=== PATIENT | male | born 1985 | race Caucasian/White ===

== ENCOUNTER → 2025-08-25 | Emergency (ER) | payer OTHER ==
[~2025-08-25] VITALS: Ht 172.7 cm; Wt 80.7 kg
[~2025-08-25] MED LIST: ACETAMINOPHEN 500 MG GEL..CAP PO ONE; AMOX-CLAV 875-1 EAC1 PO; CEFTRIAXONE SODIUM 1,000 MG VIAL IM ONE; CEFTRIAXONE SODIUM 1,000 MG VIAL ONE; DEXAMETHASONE SODIUM PHOSPHATE 4 MG/ML VIAL IM ONE; DEXAMETHASONE SODIUM PHOSPHATE 4 MG/ML VIAL ONE; IBU600 MG PO; KETOROLAC TROMETHAMINE 60 MG VIAL IM ONE; OFLOXACIN 0.3% 5ML DROPS (OTIC) OT ONE
[2025-08-25 14:00] LABS: BASO % 0.6 % (0.1-1.2); EOS # 0.02 (0.04-0.54); EOS % 0.2 % (0.7-7.0); LYMPH # 1.05 (1.18-3.74); LYMPH % 10.4 % (19.3-53.1); MEAN PLATELET VOLUME 9.30 fl (9.4-12.4); MONO # 0.58 (0.24-0.82); MONO % 5.8 % (4.7-12.5); NEUT # 8.33 (1.56-6.13); NEUT % 82.6 % (34.0-71.1); RED CELL DISTRIBUTION WIDTH 13.3 % (11.6-14.4)
[2025-08-25 14:33] LABS: ALT/SGPT 32.0 U/L (12-78); AST/SGOT 54.0 U/L (15-37); BILIRUBIN TOTAL 0.49 mg/dL (0.3-1.2); BUN CREA RATIO 16.0 (7.0-25.0); CREATININE SERUM 0.63 mg/dL (0.70-1.30); GFR 141.05; GLOBULINA 4.1 G/DL (2.4-3.5); GLUCOSE FASTING 116.0 mg/dL (65-100); OSMOLALITY SERUM 283.0 MOSM/KG (275-295)
== END | disposition home or self-care (01) ==
LOC: ER 11:02
DX: H66.90 Otitis media, unspecified, unspecified ear (principal); I10 Essential (primary) hypertension; Z91.018 Allergy to other foods

== ENCOUNTER 2025-10-09 17:49 | Emergency (ER) | payer OTHER ==
[~2025-10-09] VITALS: Ht 172.7 cm; Wt 74.8 kg
[~2025-10-09 17:49] MED LIST changes: -ACETAMINOPHEN 500 MG GEL..CAP PO ONE; -CEFTRIAXONE SODIUM 1,000 MG VIAL IM ONE; -CEFTRIAXONE SODIUM 1,000 MG VIAL ONE; -DEXAMETHASONE SODIUM PHOSPHATE 4 MG/ML VIAL IM ONE; -DEXAMETHASONE SODIUM PHOSPHATE 4 MG/ML VIAL ONE; -KETOROLAC TROMETHAMINE 60 MG VIAL IM ONE; -OFLOXACIN 0.3% 5ML DROPS (OTIC) OT ONE
[2025-10-09 19:28] VITALS: BP 145/87; O2SAT 99
[2025-10-09 23:17] LABS: BASO % 0.5 % (0.1-1.2); EOS # 0.02 (0.04-0.54); EOS % 0.2 % (0.7-7.0); LYMPH # 0.54 (1.18-3.74); LYMPH % 6.7 % (19.3-53.1); MEAN PLATELET VOLUME 9.80 fl (9.4-12.4); MONO # 0.64 (0.24-0.82); MONO % 7.9 % (4.7-12.5); NEUT # 6.81 (1.56-6.13); NEUT % 84.5 % (34.0-71.1); RED CELL DISTRIBUTION WIDTH 13.1 % (11.6-14.4)
[2025-10-09 23:40] LABS: ALT/SGPT 86.0 U/L (12-78); AST/SGOT 106.0 U/L (15-37); BILIRUBIN TOTAL 1.07 mg/dL (0.3-1.2); BUN CREA RATIO 25.0 (7.0-25.0); CREATININE SERUM 0.61 mg/dL (0.70-1.30); GFR 146.4; GLOBULINA 3.5 G/DL (2.4-3.5); GLUCOSE FASTING 101.0 mg/dL (65-100); OSMOLALITY SERUM 277.0 MOSM/KG (275-295)
[2025-10-10 00:31] LABS: URINE APPEARANCE Clear; URINE BILIRRUBIN Small (NEGATIVE); URINE BLOOD Negative; URINE COLOR Orange; URINE GLUCOSE Negative (NEGATIVE); URINE KETONE 15 (NEGATIVE); URINE LEUKOCYTE Trace; URINE NITRATE Negative; URINE UROBILINOGEN 1.0 E.U./dl
[2025-10-10 00:39] LABS: URINE BACTERIA 17.9 uL (0.0-1933); URINE EPITHELIAL CELLS 7.2 uL (0.0-38.8); URINE RBC 13.6 uL (0.0-20.8); URINE WBC 10.1 uL (0.0-23.2)
[2025-10-10 00:41] LABS: URINE CAST 0.73 uL (0.0-1.40); URINE PROTEIN 100 (NEGATIVE)
[2025-10-10 00:48] LABS: COVID-19 AG NEGATIVE (NEGATIVE)
[2025-10-10 00:48] LABS: COCAINE NEGATIVE (NEGATIVE); METHADONE NEGATIVE (NEGATIVE); OPIATES NEGATIVE (NEGATIVE); THC ( Cannabinoids) NEGATIVE (NEGATIVE)
[2025-10-10] MEDS ORDERED: DOLOGESIC-DF 51 EACH PO (03:17)
== END 2025-10-10 03:49 | disposition home or self-care (01) ==
LOC: ER 17:49
PROVIDERS: Preventive Medicine Public Health & General Preventive Medicine
DX: B34.9 Viral infection, unspecified (principal); R53.1 Weakness; R50.9 Fever, unspecified; R42 Dizziness and giddiness; Z20.822 Contact with and (suspected) exposure to COVID-19; I10 Essential (primary) hypertension; Z91.018 Allergy to other foods